=== PATIENT | female | born 1970 ===

== ENCOUNTER 2019-08-29 12:16 | Emergency (ER) | payer OTHER ==
[~2019-08-29] VITALS: Ht 162.6 cm; Wt 63.5 kg
[~2019-08-29 12:16] MED LIST: ANAPROX275 MG PO; FLEXERIL5 MG PO; PROZAC10 MG; ZYRTEC5 M1 PO
== END 2019-08-29 13:57 | disposition home or self-care (01) ==
LOC: ER 12:16
DX: S05.12XA Contusion of eyeball and orbital tissues, left eye, initial encounter (principal); W22.8XXA Striking against or struck by other objects, initial encounter; Y93.89 Activity, other specified; Y92.098 Other place in other non-institutional residence as the place of occurrence of the external cause; Y99.8 Other external cause status

== ENCOUNTER 2023-01-11 15:37 | Outpatient (CLI) | payer OTHER | END 2023-01-11 15:44 | disposition home or self-care (01) | LOC: RAD 15:37 | PROVIDERS: ATTEND Family Medicine | DX: M54.2 Cervicalgia (principal) ==

== ENCOUNTER 2023-07-02 08:41 | Outpatient (CLI) | payer OTHER | END 2023-07-02 08:49 | disposition home or self-care (01) | LOC: SONOGRAMA 08:41 | PROVIDERS: ATTEND Family Medicine | DX: R10.10 Upper abdominal pain, unspecified (principal) ==